=== PATIENT | female | born 1955 | race Hispanic/Latino ===

== ENCOUNTER → 2017-08-01 | Outpatient (CLI) | payer OTHER ==
[~2017-08-01] MED LIST: AMLODIPINE BESY10 MG PO; ASPIR 8181 MG PEG; DIATRIZOATE MEGL/DIATRIZOA SOD 30 ML BTL PO ONE; FAMOTIDINE20 MG PO; IOPAMIDOL 370 MG/ML 200 ML INFUS..BTL INJ ONE; METFORMIN HCL500 MG PO; SODIUM CHLORIDE 0.9% 50ML 50 ML ONE; VITAMIN D250000 UNIT PO; ZESTRIL20 MG PO
[2017-08-01 11:28] LABS: BLOOD UREA NITROGEN 13 mg/dL (7-26); BUN/CREATININE RATIO 19 (6-25); CREATININE, SERUM 0.67 mg/dL (0.57-1.11); EST GLOMERULAR FILTRATION RATE > 60 ML/MIN (60-)
--- NOTE | 2017-08-01 12:48 | Diagnostic Imaging Report ---
PROCEDURE: CT ABDOMEN AND PELVIS WITH CONTRAST TECHNIQUE: The abdomen and pelvis were scanned utilizing a multidetector helical scanner from the diaphragm to the lesser trochanter after the IV administration of 100 cc of Isovue 370 and the oral administration of Gastroview 30 cc. Coronal and sagittal multiplanar reformations were obtained. COMPARISON: None. INDICATIONS: ABDOMINAL PAIN FINDINGS: LOWER THORAX: Normal. HEPATOBILIARY: No focal hepatic lesions. No biliary ductal dilatation. Cholecystectomy. SPLEEN: No splenomegaly. PANCREAS: No focal masses or ductal dilatation. ADRENALS: No adrenal nodules. KIDNEYS/URETERS: No hydronephrosis, stones, or solid mass lesions. PELVIC ORGANS/BLADDER: Unremarkable. PERITONEUM / RETROPERITONEUM: No free air or fluid. Small umbilical hernia is present with omentum within the hernia sac, and series 300 image 78. No inflammatory changes or drainable fluid collection. LYMPH NODES: No lymphadenopathy. VESSELS: Atherosclerotic calcifications. GI TRACT: Circumferential bowel thickening is present in the descending colon and proximal transverse colon, series 301 images 29 and 39. Multiple subcentimeter noncalcified on a chronic lymph nodes are present in the mesentery, most prominent in the ileocolic distribution, series 301 image 47. Multiple diverticuli are present in the descending and sigmoid colon, without adjacent soft tissue inflammatory changes. Normal appendix. The stomach and small bowel are normal. BONES AND SOFT TISSUES: Degenerative changes of the lumbar spine. IMPRESSION: Circumferential bowel wall thickening of the right hemicolon may represent a colitis of infectious or inflammatory etiology. Diverticulosis without evidence of diverticulitis. Dictated by: Felix Peraza M.D. on 08/01/2017 at 12:56 Electronically approved by: Felix Peraza M.D. on 08/01/2017 at 12:56
== END ==
LOC: CT 10:15
PROVIDERS: ATTEND Internal Medicine Gastroenterology
DX: R10.9 Unspecified abdominal pain (principal)
CPT/HCPCS: 36415; 74177; 82565; 84520; Q9967

== ENCOUNTER → 2017-08-26 | Day surgery (SDC) | payer OTHER ==
[~2017-08-26] MED LIST changes: +COLESTIPOL HCL1 GM PO; -DIATRIZOATE MEGL/DIATRIZOA SOD 30 ML BTL PO ONE; +DICYCLOMINE HCL10 MG PO; +FENTANYL CITRATE/PF 100MCG/2 ML INJ ONE; -IOPAMIDOL 370 MG/ML 200 ML INFUS..BTL INJ ONE; +MIDAZOLAM HCL 2 MG/2 ML VIAL ONE; +PANTOPRAZOLE SO40 MG PO; +PROPOFOL IV EMULSION 10 MG/ML 50 ML VIAL ONE; -SODIUM CHLORIDE 0.9% 50ML 50 ML ONE
--- NOTE | 2017-08-26 15:20 | Operative Report ---
DATE OF PROCEDURE: August 26, 2017 REFERRING PHYSICIAN: Dr. Ronaldo Lehman. PROCEDURE PERFORMED: Colonoscopy with polypectomy. INDICATIONS FOR COLONOSCOPY: Abnormal CT scan with thickened right colon. MEDICATION: Patient was done under MAC. Please see anesthesiologist's note. PROCEDURE: With the patient in the left lateral decubitus position, the flexible fiberoptic Olympus colonoscope was inserted into the rectum with ease and advanced all the way to the cecum. A minute polyp was hot biopsied from the cecum. One polyp was snared from the proximal ascending colon and polypectomy site was hemoclipped, and an additional polyp was hot biopsied from the ascending colon. Transverse appeared to be within normal limits. One polyp was snared, 1 polyp was hot biopsied from the descending colon. Diverticular disease was noted to involve the distal descending and the sigmoid. Three polyps were hot biopsied, 1 polyp was snared from the sigmoid. One polyp was hot biopsied from the rectum. The scope was then retroflexed into the distal rectum and small internal hemorrhoids were noted, none of which was actively bleeding. The scope was then straightened out. The rectosigmoid area as well as the distal rectal area were decompressed. The scope was subsequently withdrawn. Patient tolerated the procedure well. IMPRESSION: 1. Cecal polyp hot biopsied. 2. Ascending colon polyps times 2, 1 snared polypectomy site hemoclipped, and 1 hot biopsied. 3. Descending colon polyps times 2, 1 snared and 1 hot biopsied. 4. Diverticulosis. 5. Sigmoid colon polyps times 4, 1 snared and 3 hot biopsied. 6. Rectal polyp hot biopsied. 7. Internal hemorrhoids, none actively bleeding. PLAN: Follow up histology. Initiate high-fiber low-fat diet. Initiate high-fiber supplement. Patient will need a followup colonoscopy in 3 years. Job#: [id number] cc:IRMA LEHMAN MD
== END | disposition home or self-care (01) ==
LOC: OR 10:13
PROVIDERS: ATTEND Internal Medicine Gastroenterology
DX: R10.9 Unspecified abdominal pain (principal); D12.2 Benign neoplasm of ascending colon; D12.4 Benign neoplasm of descending colon; D12.5 Benign neoplasm of sigmoid colon; K62.1 Rectal polyp; K57.30 Diverticulosis of large intestine without perforation or abscess without bleeding; K64.8 Other hemorrhoids; K21.9 Gastro-esophageal reflux disease without esophagitis; R93.5 Abnormal findings on diagnostic imaging of other abdominal regions, including retroperitoneum; E11.9 Type 2 diabetes mellitus without complications; I10 Essential (primary) hypertension; Z01.810 Encounter for preprocedural cardiovascular examination
CPT/HCPCS: 36415; 45384; 45385; 82948; 93005; J2250

== ENCOUNTER → 2019-12-25 | Outpatient (CLI) | payer OTHER ==
[~2019-12-25] MED LIST changes: +DIATRIZOATE MEGL/DIATRIZOA SOD 30 ML BTL PO ONE; -FENTANYL CITRATE/PF 100MCG/2 ML INJ ONE; +IOPAMIDOL 370 MG/ML 200 ML INFUS..BTL INJ ONE; -MIDAZOLAM HCL 2 MG/2 ML VIAL ONE; -PROPOFOL IV EMULSION 10 MG/ML 50 ML VIAL ONE; +SODIUM CHLORIDE 0.9% 50ML 50 ML ONE; +TRIAMTERENE-HCTZ1 EA PO
[2019-12-25 11:23] LABS: BLOOD UREA NITROGEN 16 mg/dL (7-26); BUN/CREATININE RATIO 19 (6-25); CREATININE, SERUM 0.84 mg/dL (0.57-1.11); EST GLOMERULAR FILTRATION RATE > 60 ML/MIN (60-)
--- NOTE | 2019-12-25 13:06 | Diagnostic Imaging Report ---
CT of the abdomen and pelvis. Comparison: 08/01/2017 Clinical History: Lower abdominal pain for a week Technique: Helical CT scan of the abdomen and pelvis was performed. Intravenous contrast administration was utilized. Oral contrast administration was utilized. Coronal and sagittal reconstructions were generated from the raw data. Multiple images were submitted for interpretation. This exam was performed according to our departmental dose-optimization program which includes automated exposure control, adjustment of the mA and/or kV according to patient size Discussion: Inferior chest: 2 small spherical nodules in the posterior segment of the lower lobe of the right lung. One measures approximately 7 mm and the other measures approximately 5 mm. The left smooth margins and no calcification. Comparison with the previous CT reveals that the second nodule was present and is unchanged. The first nodule was not seen. That could be because of the different imaging technique of the lower chest. A chest CT may be obtained for further evaluation or correlation. Liver: Unremarkable Spleen: Unremarkable Pancreas: Unremarkable Biliary tree and gallbladder: Status post cholecystectomy. Otherwise unremarkable Adrenal glands: Unremarkable Kidneys and ureters: Small right renal cortical cysts less than a centimeter in size. One small left renal cortical cyst approximately 1 cm in size. Other smaller left renal cortical cysts too small to characterize. Vasculature: Unremarkable Lymph nodes: No lymphadenopathy Bowel: Unremarkable Pelvis: Urinary bladder is unremarkable. Uterus unremarkable. Adnexa unremarkable. Pelvic wall unremarkable. Peritoneum: Unremarkable Perineal compartments: unremarkable. Fluid: No free fluid Bones: Unremarkable Body wall: Unremarkable Impression: Presence of a 7 mm nodular opacity in the right lower lung posteriorly which was not seen on the previous exam. Full CT of the chest performed if indicated further evaluation. Multiple tiny renal cysts bilaterally as described. Renal ultrasound can be performed for further characterization. No abnormality to account for the patient's symptoms of abdominal pain for one week. Signed by: Davon Reed MD on 12/25/2019 1:03 PM
== END ==
LOC: CT 10:47
PROVIDERS: ATTEND Internal Medicine Gastroenterology
DX: R10.32 Left lower quadrant pain (principal)
CPT/HCPCS: 36415; 74177; 82565; 84520; Q9967

== ENCOUNTER → 2020-02-28 | Outpatient (CLI) | payer OTHER ==
[~2020-02-28] MED LIST changes: -DIATRIZOATE MEGL/DIATRIZOA SOD 30 ML BTL PO ONE; -IOPAMIDOL 370 MG/ML 200 ML INFUS..BTL INJ ONE; -SODIUM CHLORIDE 0.9% 50ML 50 ML ONE
--- NOTE | 2020-02-28 09:31 | Diagnostic Imaging Report ---
EXAM: CT Chest WITHOUT intravenous contrast 02/28/2020 9:00 AM INDICATION: Pulmonary nodule COMPARISON: Abdomen and pelvis CT of 12/25/2019 TECHNIQUE: Chest was scanned utilizing a multidetector helical scanner from the lung apex through the level of the adrenal glands without administration of IV contrast. Coronal and sagittal reformations were obtained. Routine protocol was performed. IV CONTRAST: None RADIATION DOSE: Total DLP: 277 mGy*cm. Dose modulation, iterative reconstruction, and/or weight based adjustment of the mA/kV was utilized to reduce the radiation dose to as low as reasonably achievable. COMPLICATIONS: None FINDINGS: LINES/ TUBES: None. LUNGS AND AIRWAYS: The central airways are patent. No focal consolidation or pulmonary edema. Scattered small pulmonary nodules throughout both lungs measure up to 5 mm at the right lower lobe (series 3 image 76), 4 mm in the left lower lobe, 4 mm in the left upper lobe, and 3 mm in the right middle lobe. PLEURA: The pleural spaces are clear. HEART AND MEDIASTINUM: The thyroid gland is normal. No mediastinal, hilar or axillary lymphadenopathy. The heart is normal in size.. There is no pericardial effusion. UPPER ABDOMEN: No acute findings in the upper abdomen. BONES: The visualized bony thorax is within normal limits. SOFT TISSUES: Unremarkable. IMPRESSION: Scattered small pulmonary nodules in both lungs measure up to 5 mm. If the patient is low risk, no further imaging follow-up is needed. If the patient is high risk, chest CT at 12 months is optional. Signed by: Rochelle Carter MD on 02/28/2020 9:27 AM
== END ==
LOC: CT 08:38
PROVIDERS: ATTEND Internal Medicine
DX: R91.1 Solitary pulmonary nodule (principal)
CPT/HCPCS: 71250

== ENCOUNTER → 2020-04-03 | Day surgery (SDC) | payer OTHER ==
[~2020-04-03] VITALS: Ht 160 cm; Wt 99.8 kg
[~2020-04-03] MED LIST changes: +ATORVASTATIN CA10 MG PO; +FENTANYL CITRATE/PF 100MCG/2 ML INJ ONE; +HYOSCYAMINE 0.125 MG TAB ONE; +KETAMINE HCL INJ 50 MG/ML 10 ML VIAL ONE; +LEVOTHYROXINE50 MCG PO; +MIDAZOLAM HCL 2 MG/2 ML VIAL ONE; +PROPOFOL IV EMULSION 10 MG/ML 20 ML VIAL ONE; +VITAMIN D32400 UNIT/ PO
[2020-04-03 16:00] VITALS: BP 102/63
[2020-04-03 16:09] LABS: WBC,FECAL (FECAL LACTOFERRIN) NEGATIVE (NEGATIVE)
[2020-04-04 12:48] LABS: C DIFFICILE TOXIN A&B AMP PROB NEGATIVE (NEGATIVE)
--- NOTE | 2020-04-06 02:49 | Operative Report ---
DATE OF PROCEDURE: 04/03/2020 SURGEON: Cecil Del Rio MD PROCEDURE: An EGD with polypectomy and biopsies and colonoscopy with polypectomy and biopsies INDICATIONS FOR EGD: Upper abdominal pain. INDICATIONS FOR COLONOSCOPY: Personal history of colon polyps, lower abdominal pain, diarrhea, fecal urgency. MEDICATIONS: The patient was done under MAC. Please see anesthesiologist's note. PROCEDURE IN DETAIL: With the patient in the left lateral decubitus position, the flexible fiberoptic Olympus gastroscope was introduced into the esophagus under direct visualization without any difficulty. There was some patchy erythema noted in distal esophagus. The scope was then advanced with ease into the stomach and mucosa overlying the antrum and the body revealed some patchy erythema and pizy-[id number] edema. Biopsies were obtained, sent to stain for H pylori. Two minute polyps were noted in the antrum and those were partially excised with cold biopsy forceps. The pylorus was of normal contour and shape, was intubated with ease and the scope was advanced all the way to the second portion of the duodenum. The scope was then withdrawn slowly and biopsies were obtained from the proximal second portion and the duodenal bulb to rule out sprue. The scope was then withdrawn back into the stomach and retroflexed mucosa overlying the fundus appeared to be within normal limits. An approximately 5 mm submucosal nodule was noted next to the cardia and that was biopsied. The scope was then straightened out, it was subsequently withdrawn. The patient tolerated the procedure well. IMPRESSION: 1. Distal esophagitis, mild. 2. Approximately 5 mm submucosal nodule, cardia, biopsied. 3. Gastritis, biopsied, biopsies sent to stain for H pylori. 4. Gastric polyps, x2, minute, hyperplastic appearing, antrum, partially excised with cold biopsy forceps. 5. Rule out sprue. PLAN: Follow up histology. Initiate Protonix 40 mg one p.o. q.a.m. a.c. The patient was then turned around and after adequate lubrication of the anal canal, flexible fiberoptic Olympus colonoscope was inserted into the rectum with ease and advanced all the way to the cecum. Mucosa overlying the cecum appeared to be within normal limits. The ileocecal valve was intubated and the scope was advanced into the terminal ileum. Biopsies were obtained. The scope was then withdrawn back into the colon. It was then withdrawn slowly. Mucosa overlying the ascending and the transverse appeared to be within normal limits. Mild patchy inflammatory changes were noted in the left colon as well as rectum and biopsies were obtained. A minute polyp was removed per cold biopsy forceps from the distal descending colon. Diverticular disease was noted to involve the sigmoid colon. The scope was then retroflexed into the distal rectum and small internal hemorrhoids were noted, none of which was actively bleeding. The scope was then straightened out. It was subsequently withdrawn after securing an adequate stool specimen that was sent for the appropriate stool studies. The patient tolerated the procedure well. IMPRESSION: 1. Mild patchy left-sided colitis. 2. Diverticulosis. 3. Descending colon polyp, cold biopsied. 4. Proctitis, mild. 5. Internal hemorrhoids, none actively bleeding. PLAN: Follow up histology. Follow up stool studies. Initiate Bentyl 20 mg one p.o. t.i.d. The patient might benefit from a followup colonoscopy in 3 years. Cecil Del Rio MD [facility] [place] /[id number] cc: Linh Mcgrath MD
== END | disposition home or self-care (01) ==
LOC: OR 12:35
PROVIDERS: ATTEND Internal Medicine Gastroenterology
DX: K51.50 Left sided colitis without complications (principal); K63.5 Polyp of colon; K31.7 Polyp of stomach and duodenum; K31.89 Other diseases of stomach and duodenum; K29.50 Unspecified chronic gastritis without bleeding; K57.30 Diverticulosis of large intestine without perforation or abscess without bleeding; K21.9 Gastro-esophageal reflux disease without esophagitis; K62.89 Other specified diseases of anus and rectum; K64.8 Other hemorrhoids; D72.820 Lymphocytosis (symptomatic); E11.9 Type 2 diabetes mellitus without complications; R00.1 Bradycardia, unspecified; I10 Essential (primary) hypertension; Z01.810 Encounter for preprocedural cardiovascular examination; Z01.812 Encounter for preprocedural laboratory examination; Z11.59 Encounter for screening for other viral diseases; Z79.84 Long term (current) use of oral hypoglycemic drugs; Z68.38 Body mass index [BMI] 38.0-38.9, adult; Z80.0 Family history of malignant neoplasm of digestive organs
CPT/HCPCS: 36415; 43239; 45380; 82948; 83630; 83993; 87045; 87177; 87328; 87493; 93005; J2250; J2704; J3010; U0002; 45378